=== PATIENT | male | born 1965 | race Caucasian/White ===

== ENCOUNTER 2017-09-27 17:20 | Emergency (ER) | payer OTHER ==
[~2017-09-27] VITALS: Ht 180.3 cm; Wt 104.3 kg
--- NOTE | 2017-09-27 17:44 | NUR ---
Patient discharged to home in stable conditon. Written and verbal after care instructions given. Patient verbalizes understanding of instructions.
== END 2017-09-27 17:45 | disposition home or self-care (01) ==
LOC: ER 17:21
DX: M25.561 Pain in right knee (principal); I10 Essential (primary) hypertension
CPT/HCPCS: 99281; A4663